=== PATIENT | male | born 1935 | race Caucasian/White ===

== ENCOUNTER 2019-05-17 11:11 | Emergency (ER) | payer MEDICARE, BC ==
[2019-05-17 11:21] VITALS: Wt 56.8 kg
[2019-05-17] MEDS ORDERED: NORVASC5 MG PO (11:25)
[2019-05-17] MEDS ORDERED: DONEPEZIL HCL10 MG PO (11:25)
[2019-05-17] MEDS ORDERED: GABAPENTIN100 MG PO (11:26)
[2019-05-17] MEDS ORDERED: KLONOPIN0.5 MG PO (11:26)
[2019-05-17] MEDS ORDERED: PROSCAR5 MG PO (11:26)
[2019-05-17] MEDS ORDERED: FLOMAX0.4 MG PO (11:26)
[2019-05-17] MEDS ORDERED: HYDROCODONE-A1 UDTA2 PO (11:27)
[2019-05-17] MEDS ORDERED: PERCOCET 10-321 EAC1 PO (11:27)
[2019-05-17 13:34] VITALS: BP 155/113
== END 2019-05-17 13:34 | disposition home or self-care (01) ==
LOC: D.ER 11:11
DX: S92.302A Fracture of unspecified metatarsal bone(s), left foot, initial encounter for closed fracture (principal); W19.XXXA Unspecified fall, initial encounter

== ENCOUNTER 2019-05-19 13:02 | Inpatient (IN) | payer MEDICARE, BC ==
[~2019-05-19] VITALS: Ht 167.6 cm; Wt 56.7 kg
[~2019-05-19 13:02] MED LIST: DONEPEZIL HCL10 MG PO; FLOMAX0.4 MG PO; GABAPENTIN100 MG PO; HYDROCODONE-A1 UDTA2 PO; KLONOPIN0.5 MG PO; NORVASC5 MG PO; PERCOCET 10-321 EAC1 PO; PROSCAR5 MG PO
[2019-05-19 15:29] LABS: APPEARANCE CLEAR (CLEAR); COLOR YELLOW (YELLOW)
[2019-05-19 15:30] LABS: BILIRUBIN NEGATIVE (NEGATIVE); GLUCOSE NEGATIVE (NEGATIVE); KETONE NEGATIVE (NEGATIVE); NITRITE NEGATIVE (NEGATIVE); PROTEIN NEGATIVE (NEGATIVE); SPECIFIC GRAVITY 1.015 (1.005-1.020); UROBILINOGEN NORMAL (NORMAL)
[2019-05-19 15:34] LABS: UDS - AMPHET NEGATIVE QUAL (NEGATIVE); UDS - BARB NEGATIVE QUAL (NEGATIVE); UDS - BENZO NEGATIVE QUAL (NEGATIVE); UDS - COCAINE NEGATIVE QUAL (NEGATIVE); UDS - OPIATE POSITIVE QUAL (NEGATIVE); UDS - PCP NEGATIVE QUAL (NEGATIVE); UDS - THC NEGATIVE QUAL (NEGATIVE)
[2019-05-19 15:39] LABS: BASOPHILS 0.1 % (0-2); EOSINOPHILS 0.1 % (0-7); HEMATOCRIT 38.3 % (42.0-54.0); HEMOGLOBIN 12.5 g/dL (13.5-17.5); IMMATURE GRANULOCYTES 0.4 % (0-5); LYMPHOCYTES 8.3 % (15-50); MCH 30.9 pg (26.0-34.0); MCHC 32.6 g/dL (31.0-37.0); MCV 94.6 fL (80.0-100.0); MEAN PLATELET VOLUME 9.8 fL (7.4-10.4); MONOCYTES 9.7 % (2-11); NEUTROPHILS 81.4 % (40-80); PLATELET COUNT 402 10x3/uL (130-400); RBC 4.05 10x6/uL (4.20-6.10); RDW 13.3 % (11.5-14.5); WBC 11.6 10x3/uL (4.8-10.8)
[2019-05-19 15:46] LABS: CALC OSMOLALITY 278 mosm/kg (275-300); CALCIUM 8.6 mg/dL (8.5-10.1); CHLORIDE - SERUM 103 mmol/L (98-107); GLUCOSE 106 mg/dL (74-106); POTASSIUM - SERUM 3.9 mmol/L (3.5-5.1); SODIUM 138 mmol/L (136-145); UREA NITROGEN 20 mg/dL (7-18); eGFR NON AFRICAN AMERICAN 76 mL/min (90-120)
[2019-05-19 15:56] LABS: ALBUMIN 2.9 g/dL (3.4-5.0); ALKALINE PHOSPHATASE 189 U/L (46-116); ALT (SGPT) 33 U/L (10-68); BILIRUBIN - TOTAL 0.54 mg/dL (0.2-1.3)
[2019-05-19 20:00] VITALS: BP 151/94
--- NOTE | 2019-05-19 20:00 | NUR ---
ASSESSMENT PER FLOWSHEET. SR UP X3 CALL LIGHT WITHIN REACH. DEIRDRE MAT TO BED ALARMS ON IV PATENT RT ARM OF NS AT 60CC'S/HR. SITE CLEAR. ORTHO BOOT TO LEFT FOOT HX OF FX.
[2019-05-19 20:18] VITALS: BP 166/90; BMI 20.2
--- NOTE | 2019-05-19 20:45 | NUR ---
FOUND IV LYING IN BED PT HAD PULLED OUT. RESITED TO RT FOREARM #20 G [id number]. RESUMED IV FLUIDS.
--- NOTE | 2019-05-19 22:37 | NUR ---
MOANING IF IN PAIN. RUBS LEFT LEG. MORPHINE 2 MG SIVP GIVEN FOR PAIN CONTROL.
--- NOTE | 2019-05-20 00:23 | NUR ---
EYES CLOSED RESPIRATIONS WITH EASE AND UNLABORED.
[2019-05-20 04:00] VITALS: BP 122/50
--- NOTE | 2019-05-20 04:21 | NUR ---
EYES CLOSED RESPIRATIONS WITH EASE AND UNLABORED.
[2019-05-20 06:46] LABS: BASOPHILS 0.1 % (0-2); EOSINOPHILS 0.1 % (0-7); HEMATOCRIT 41.6 % (42.0-54.0); HEMOGLOBIN 13.5 g/dL (13.5-17.5); IMMATURE GRANULOCYTES 0.4 % (0-5); LYMPHOCYTES 7.4 % (15-50); MCH 30.7 pg (26.0-34.0); MCHC 32.5 g/dL (31.0-37.0); MCV 94.5 fL (80.0-100.0); MEAN PLATELET VOLUME 9.9 fL (7.4-10.4); PLATELET COUNT 437 10x3/uL (130-400); RDW 13.3 % (11.5-14.5); WBC 11.3 10x3/uL (4.8-10.8)
[2019-05-20 07:05] LABS: CALC OSMOLALITY 277 mosm/kg (275-300); CALCIUM 9.1 mg/dL (8.5-10.1); CARBON DIOXIDE 24.9 mmol/L (21.0-32.0); CHLORIDE - SERUM 101 mmol/L (98-107); CREATININE - SERUM 0.9 mg/dL (0.6-1.3); GLUCOSE 101 mg/dL (74-106); PHOSPHOROUS 3.9 mg/dL (2.5-4.9); POTASSIUM - SERUM 3.7 mmol/L (3.5-5.1); SODIUM 138 mmol/L (136-145); UREA NITROGEN 18 mg/dL (7-18); eGFR NON AFRICAN AMERICAN 86 mL/min (90-120)
[2019-05-20 07:31] LABS: APTT 30.8 SECONDS (22.8-39.4); INR 1.11 (0.85-1.17); PROTIME 13.8 SECONDS (11.6-15.0)
--- NOTE | 2019-05-20 07:40 | NUR ---
ALERT AND ORIENTED TO SELF. LUNGS CLEAR BILATERALLY. HEART SOUNDS S1 AND S2 HEARD IN ALL DE LEON. BOWEL SOUNDS ACTIVE X 4. SKIN INTACT WITHOUT REDNESS. WALKING BOOT IN PLACE TO LEFT FOOT FROM PREVIOUS FX. IV TO LFA PATENT WITHOUT REDNESS. DENIES NEEDS. BED LOW. FALL PRECAUTIONS IN PLACE. CALL COELLO AND PERSONAL ITEMS IN REACH. WILL CONTINUE TO MONITOR.
[2019-05-20 08:27] VITALS: BP 106/55
--- NOTE | 2019-05-20 09:51 | NUR ---
PRN PAIN MEDICATION GIVEN PER REQUEST. NEPHEW IN ROOM.
--- NOTE | 2019-05-20 12:00 | NUR ---
PATIENT PULLED OUT IV TO RFA. SECOND IV THAT HAS BEEN PULLED OUT. NOTE LEFT FOR KELLY ABBOTT FOR POSSIBLE PO ABX AND PAIN MEDICATION.
[2019-05-20 12:18] VITALS: BP 139/91
--- NOTE | 2019-05-20 13:16 | NUR ---
SPOKE WITH KELLY ABBOTT ABOUT POSSIBLE PO ABX. NO N/O AT THIS TIME.
--- NOTE | 2019-05-20 14:24 | MORECARE ---
CASE MANAGEMENT DISCHARGE SUMMARY PATIENT: SHIELA GUAMAN UNIT: [id number] ADM DATE: 05/19/19 AGE: 83 : 36 SEX: M ROOM/BED: D.2219 AUTHOR: TREY HERNANDEZ PHYSICIAN: REFERRING PHYSICIAN: JUSTO HUGGINS MD DATE OF SERVICE: 05/20/19 Discharge Plan Patient Name: SHIELA GUAMAN Facility: [facility]:[place] : 1935 Planned Disposition: Anticipated Discharge Date: Discharge Date: Expected LOS: Initial Reviewer: [email or web address] Initial Review Date: 05/19/2019 Generated: 05/20/19 3:24 pm Comments DCP- Discharge Planning Updated by [email or web address]: Alberat Ruiz on 05/20/19 1:[address] STARTED THE PROCESS TO GET PATIENT TRANSFERED TO [facility], CALLED THE TRANSFER CENTER SPOKE WITH ALENA AT TRANSFER CENTER ALSO SPOKE WITH CHARLOTTE GARCIA External Providers External Provider: [facility]TRANSF[facility] Next Contact Date: Service Request Date: Service Type: Resolution: Reviewer: Comments: Patient Name: SHIELA GUAMAN Page [phone] at 1424 All edits/amendments must be made on the electronic document DICTATION DATE: 05/20/191423 BRACELET FORM COVERER: BUCK 05/20/191423 RPT#: [id number] DC DATE: STATUS: ADM IN [facility] [address] [place] [address] END OF REPORT
--- NOTE | 2019-05-20 16:00 | MORECARE ---
CASE MANAGEMENT DISCHARGE SUMMARY PATIENT: SHIELA GUAMAN UNIT: [id number] ADM DATE: 05/19/19 AGE: 83 : 36 SEX: M ROOM/BED: D.2219 AUTHOR: TREY HERNANDEZ PHYSICIAN: REFERRING PHYSICIAN: JUSTO HUGGINS MD DATE OF SERVICE: 05/20/19 Discharge Plan Patient Name: SHIELA GUAMAN Facility: [facility]:[place] : 1935 Planned Disposition: Anticipated Discharge Date: Discharge Date: Expected LOS: Initial Reviewer: [email or web address] Initial Review Date: 05/19/2019 Generated: 05/20/19 4:59 pm Comments DCP- Discharge Planning Updated by [email or web address]: Alberta Ruiz on 05/20/19 2:[address] CALLED [facility] TO GET NEXT OF KIN INFORMATION NEPHEW - NATALIO GUAMAN [phone] I ATTEMPTED TO CALL HIM, BUT GOT A VOICEMAIL I DID NOT LEAVE A MESSAGE. CAROLINE SANCHEZ [phone] DCP- Discharge Planning Updated by [email or web address]: Alberta Ruiz on 05/20/19 1:[address] STARTED THE PROCESS TO GET PATIENT TRANSFERED TO [facility], CALLED THE TRANSFER CENTER SPOKE WITH ALENA AT TRANSFER CENTER ALSO SPOKE WITH CHARLOTTE GARCIA export: 05/20/19 1:25 p Patient Name: SHIELA GUAMAN Page [phone] at 1600 All edits/amendments must be made on the electronic document DICTATION DATE: 05/20/191558 RESERVE OFFICER: BUCK 05/20/19 155 RPT#: [id number] DC DATE: STATUS: ADM IN [facility] [address] [place] [address] END OF REPORT
[2019-05-20 17:14] VITALS: BP 142/76
--- NOTE | 2019-05-20 18:24 | NUR ---
RESTING IN BED. FALL PRECAUTIONS IN PLACE. CALL COELLO AND PERSONAL ITEMS IN REACH. WILL CONTINUE TO MONITOR.
--- NOTE | 2019-05-20 20:00 | NUR ---
ASSESSMENT PER FLOWSHEET. IV SALINE LOCKED TO RT ARM. PT CONFUSED DEIRDRE MAT TO BED SR UP X2 CALL LIGHT WITHIN REACH.
[2019-05-20 20:24] VITALS: BP 130/76
--- NOTE | 2019-05-20 20:30 | NUR ---
INC URINE COMPLETE BED BATH WITH LINENS CHANGED
--- NOTE | 2019-05-20 21:30 | NUR ---
MEDS GIVEN PER MAR.
[2019-05-21] VITALS (10 sets, daily range): BP systolic 144–168; BP diastolic 80–99; Ht 167.6 cm; Wt 56.7 kg
--- NOTE | 2019-05-21 | NUR ---
INC URINE COMPLETE BATH WITH LINENS CHANGED.
--- NOTE | 2019-05-21 02:22 | NUR ---
C/O PAIN NORCO 7.5MG TAB ONE PO GIVEN FOR PAIN CONTROL.
--- NOTE | 2019-05-21 02:28 | NUR ---
RESTING AT THIS TIME.
[2019-05-21 07:20] LABS: HEMOGLOBIN 12.4 g/dL (13.5-17.5); MCH 30.8 pg (26.0-34.0); MCHC 31.8 g/dL (31.0-37.0); MEAN PLATELET VOLUME 10.2 fL (7.4-10.4); PLATELET COUNT 373 10x3/uL (130-400); RBC 4.03 10x6/uL (4.20-6.10); RDW 13.4 % (11.5-14.5); WBC 10.1 10x3/uL (4.8-10.8)
[2019-05-21 07:23] LABS: MCV 96.8 fL (80.0-100.0)
[2019-05-21 07:45] LABS: APTT 32.9 SECONDS (22.8-39.4); INR 1.2 (0.85-1.17); PROTIME 14.7 SECONDS (11.6-15.0)
[2019-05-21 07:48] LABS: CALC OSMOLALITY 280 mosm/kg (275-300); CALCIUM 8.3 mg/dL (8.5-10.1); CARBON DIOXIDE 24.7 mmol/L (21.0-32.0); CHLORIDE - SERUM 105 mmol/L (98-107); GLUCOSE 113 mg/dL (74-106); LDH 322 U/L (85-227); MAGNESIUM - SERUM 1.8 mg/dL (1.8-2.4); PHOSPHOROUS 3.5 mg/dL (2.5-4.9); POTASSIUM - SERUM 4.2 mmol/L (3.5-5.1); SODIUM 138 mmol/L (136-145); UREA NITROGEN 25 mg/dL (7-18); eGFR NON AFRICAN AMERICAN 76 mL/min (90-120)
--- NOTE | 2019-05-21 08:09 | NUR ---
PATIENT RECIEVED RESTING WITH EYES CLOSED
--- NOTE | 2019-05-21 08:42 | NUR ---
PATIENT OFF FLOOR FOR BONE BIOPSY
[2019-05-21 09:58] LABS: EOSINOPHILS 1 % (0-7); LYMPHOCYTES 13 % (15-50); MONOCYTES 9 % (2-11); NEUTROPHILS 75 % (40-80)
[2019-05-21 09:59] LABS: PLATELET ESTIMATE INCREASED; PLATELET MORPHOLOGY PLT CLUMPS PRESENT
[2019-05-21 10:00] LABS: ROULEAUX OCC
--- NOTE | 2019-05-21 13:30 | NUR ---
PATIENT RESTING WITH NO DISTRESS CL IN REACH
--- NOTE | 2019-05-21 14:30 | NUR ---
THIS NURSE RECEIVED THIS PATIENT AT 1400. PATIENT IS CONFUSED. BED ALARM ON. CALL LIGHT WITHIN REACH. VOICES NO NEEDS AT THIS TIME.
--- NOTE | 2019-05-21 16:41 | NUR ---
PATIENT REMAINS RESTING IN BED. WATCHING T.V. VOICES NO NEEDS AT THIS TIME
--- NOTE | 2019-05-21 20:00 | NUR ---
ASSESSMENT PER FLOWSHEET. IV SALINE LOCKED TO RT FOREARM. INC URINE CLEANED AND DRIED. WITH LINENS CHANGED.
--- NOTE | 2019-05-21 21:56 | NUR ---
C/O PAIN IN BODY. NORCO 7.5MG TAB ONE PO GIVEN FOR PAIN CONTROL.DEIRDRE MAT TO BED YELLOW SAFETY MEASURES IN USE. SR UP X3 CALL LIGHT WITHIN REACH DOOR OPENED.
--- NOTE | 2019-05-21 22:41 | NUR ---
RESTING AT THIS TIME.
--- NOTE | 2019-05-22 02:00 | NUR ---
INC URINE LINENS CHANGED
[2019-05-22 04:00] VITALS: BP 157/92
[2019-05-22 06:08] LABS: BASOPHILS 0.1 % (0-2); EOSINOPHILS 0.3 % (0-7); HEMATOCRIT 38.8 % (42.0-54.0); HEMOGLOBIN 12.6 g/dL (13.5-17.5); IMMATURE GRANULOCYTES 0.7 % (0-5); LYMPHOCYTES 9.7 % (15-50); MCH 30.4 pg (26.0-34.0); MCHC 32.5 g/dL (31.0-37.0); MEAN PLATELET VOLUME 10.2 fL (7.4-10.4); MONOCYTES 13.2 % (2-11); PLATELET COUNT 428 10x3/uL (130-400); RBC 4.15 10x6/uL (4.20-6.10); RDW 13.4 % (11.5-14.5); WBC 10.1 10x3/uL (4.8-10.8)
[2019-05-22 06:12] LABS: MCV 93.5 fL (80.0-100.0)
[2019-05-22 06:34] LABS: CALC OSMOLALITY 282 mosm/kg (275-300); CALCIUM 8.3 mg/dL (8.5-10.1); CARBON DIOXIDE 26.2 mmol/L (21.0-32.0); CHLORIDE - SERUM 103 mmol/L (98-107); CREATININE - SERUM 0.9 mg/dL (0.6-1.3); GLUCOSE 117 mg/dL (74-106); MAGNESIUM - SERUM 1.8 mg/dL (1.8-2.4); POTASSIUM - SERUM 4.5 mmol/L (3.5-5.1); SODIUM 139 mmol/L (136-145); UREA NITROGEN 24 mg/dL (7-18); eGFR NON AFRICAN AMERICAN 86 mL/min (90-120)
--- NOTE | 2019-05-22 07:16 | NUR ---
ALERT AND ORIENTED TO SELF. LUNGS CLEAR BILATERALLY. HEART SOUNDS S1 AND S2 HEARD IN ALL DE LEON. BOWEL SOUNDS ACTIVE X 4. SKIN INTACT WITHOUT REDNESS. WALKING BOOT FOR LEFT FOOT OFF AND ON FLOOR NEXT TO BED. IV TO RFA PATENT WITHOUT REDNESS. DENIES NEEDS. BED LOW. FALL PRECAUTIONS IN PLACE. CALL COELLO AND PERSONAL ITEMS IN REACH. WILL CONTINUE TO MONITOR.
--- NOTE | 2019-05-22 09:02 | NUR ---
ATTEMPTED TO GIVE PATIENT BREAKFAST TRAY. STATES NOT HUNGRY. TRAY LEFT IN ROOM. DAUGHTER IN LAW SUPPOSED TO COME HELP EAT LATER.
[2019-05-22 09:13] LABS: CEA 144.4 ng/mL (0.0-4.7)
[2019-05-22 09:23] VITALS: BP 159/95
--- NOTE | 2019-05-22 09:43 | NUR ---
RESTING IN BED. DENIES NEEDS. WILL CONTINUE TO MONITOR.
--- NOTE | 2019-05-22 11:17 | NUR ---
BED BATH GIVEN. MEDIUM BM NOTED.
--- NOTE | 2019-05-22 12:21 | NUR ---
RESTING IN BED. NIECE AT BEDSIDE. DENIES NEEDS. WILL CONTINUE TO MONITOR.
--- NOTE | 2019-05-22 12:25 | NUR ---
JAM PATRICIA PRAYING WITH FAMILY IN ROOM PER PATIENT REQUEST.
[2019-05-22 13:08] VITALS: BP 119/72
--- NOTE | 2019-05-22 14:14 | NUR ---
PATIENT'S SISTER CALLED REQUESTING INFO ABOUT PATIENT. SPOKE WITH PATIENT TO ASK IF OK TO TALK TO SISTER. STATES OKAY TO GIVE SISTER INFORMATION.
--- NOTE | 2019-05-22 15:39 | NUR ---
PATIENT SLEEPING. WILL CONTINUE TO MONITOR.
[2019-05-22 16:08] LABS: SPE - A/G RATIO 0.9 (0.7-1.7); SPE - ALBUMIN 2.8 g/dL (2.9-4.4); SPE - ALPHA-1 GLOBULIN 0.2 g/dL (0.0-0.4); SPE - BETA GLOBULIN 0.8 g/dL (0.7-1.3); SPE - GAMMA GLOBULIN 1.2 g/dL (0.4-1.8); SPE - M-SPIKE Not Observed g/dL (Not Observed)
--- NOTE | 2019-05-22 17:30 | MORECARE ---
CASE MANAGEMENT DISCHARGE SUMMARY PATIENT: SHIELA GUAMAN UNIT: [id number] ADM DATE: 05/19/19 AGE: 83 : 36 SEX: M ROOM/BED: D.2219 AUTHOR: TREY HERNANDEZ PHYSICIAN: REFERRING PHYSICIAN: JUSTO HUGGINS MD DATE OF SERVICE: 05/22/19 Discharge Plan Patient Name: SHIELA GUAMAN Facility: [facility]:[place] : 1935 Planned Disposition: Anticipated Discharge Date: Discharge Date: Expected LOS: Initial Reviewer: [email or web address] Initial Review Date: 05/19/2019 Generated: 05/22/19 6:30 pm DCP- Discharge Planning Updated by [email or web address]: Alberta Ruiz on 05/20/19 3:[address] CALLED [facility] TO GET NEXT OF KIN INFORMATION NEPHEW - NATALIO GUAMAN [phone] I ATTEMPTED TO CALL HIM, BUT GOT A VOICEMAIL I DID NOT LEAVE A MESSAGE. CAROLINE SANCHEZ [phone] I TOLD [facility] THAT HE WILL BE TRANSFERED TO [facility] FOR A SPECIALIST DCP- Discharge Planning Updated by [id number]: Alberta Ruiz on 05/20/19 1:[address] STARTED THE PROCESS TO GET PATIENT TRANSFERED TO [facility], CALLED THE TRANSFER CENTER SPOKE WITH ALENA AT TRANSFER CENTER ALSO SPOKE WITH CHARLOTTE GARCIA DP export: 05/20/19 3:00 p Patient Name: SHIELA GUAMAN Page [phone] at 1730 All edits/amendments must be made on the electronic document DICTATION DATE: 05/22/191729 SITE DIRECTOR: BUCK 05/22/191729 RPT#: [id number] DC DATE: STATUS: ADM IN [facility] [address] [place] [address] END OF REPORT
--- NOTE | 2019-05-22 17:38 | MORECARE ---
CASE MANAGEMENT DISCHARGE SUMMARY PATIENT: SHIELA GUAMAN UNIT: [id number] ADM DATE: 05/19/19 AGE: 83 : 36 SEX: M ROOM/BED: D.2219 AUTHOR: TREY HERNANDEZ PHYSICIAN: REFERRING PHYSICIAN: JUSTO HUGGINS MD DATE OF SERVICE: 05/22/19 Discharge Plan Patient Name: SHIELA GUAMAN Facility: [facility]:[place] : 1935 Planned Disposition: Anticipated Discharge Date: Discharge Date: Expected LOS: Initial Reviewer: [id number] Initial Review Date: 05/19/2019 Generated: 05/22/19 6:37 pm Comments DCP- Discharge Planning Updated by [email or web address]: Kinga Haddad on 05/22/19 4:[address] Patient Name: SHIELA GUAMAN Admission Status: ER Accout number: [id number] Admission Date: 05-19-2019 : 1935 Admission Diagnosis: Attending: JUSTO HUGGINS Current LOS: 3 Anticipated DC Date: Planned Disposition: Primary Insurance: MEDICARE A & B Discharge Planning Comments: BRENDA LANCE WANTS [facility], IF NOT APPROPRIATE THEN SIGNED BETH FOR [facility]. I WILL CALL [facility] NOW. CM TO FOLLOW AND ASSIST. Skin Piler: Kinga Haddad DCP- Discharge Planning Updated by [id number]: Alberta Ruiz on 05/20/19 3:[address] CALLED [facility] TO GET NEXT OF KIN INFORMATION NEPHEW - NATALIO GUAMAN [phone] I ATTEMPTED TO CALL HIM, BUT GOT A VOICEMAIL I DID NOT LEAVE A MESSAGE. CAROLINE SANCHEZ [phone] I TOLD [facility] THAT HE WILL BE TRANSFERED TO [facility] FOR A SPECIALIST DCP- Discharge Planning Updated by [id number]: Alberta Ruiz on 05/20/19 1:[address] STARTED THE PROCESS TO GET PATIENT TRANSFERED TO [facility], CALLED THE TRANSFER CENTER SPOKE WITH ALENA AT TRANSFER CENTER ALSO SPOKE WITH CHARLOTTE GARCIA External Providers External Provider: [facility] Next Contact Date: Service Request Date: Service Type: Resolution: Reviewer: Comments: Last DP export: 05/22/19 4:30 p Patient Name: SHIELA GUAMAN Page [phone] at 1738 All edits/amendments must be made on the electronic document DICTATION DATE: 05/22/191736 LINE RUNNER: BUCK 05/22/191736 RPT#: [id number] DC DATE: STATUS: ADM IN [facility] [address] [place] [address] END OF REPORT
--- NOTE | 2019-05-22 17:39 | NUR ---
SPOKE WITH DR HUGGINS WHO STATES OK TO RENEW MORPHINE ON SEP. ALSO TOLD MD FAMILY REQUESTING TO SEE .
--- NOTE | 2019-05-22 17:40 | NUR ---
RESTING IN BED. FAMILY AT BEDSIDE. REQUESTED AND GIVEN PRN MORPHINE. FAMILY REQUESTING MORPHINE BE GIVEN EVERY 4 HOURS REGARDLESS OF PATIENT ASKING FOR PAIN MEDICATION. EDUCATION PROVIDED. VERBALIZED UNDERSTANDING. REQUESTING TO SPEAK WITH DR HUGGINS ABOUT SCHEDULING PAIN MEDICATION. AWARE.
[2019-05-22 17:42] VITALS: BP 133/75
--- NOTE | 2019-05-22 17:53 | MORECARE ---
CASE MANAGEMENT DISCHARGE SUMMARY PATIENT: SHIELA GUAMAN UNIT: [id number] ADM DATE: 05/19/19 AGE: 83 : 36 SEX: M ROOM/BED: D.2219 AUTHOR: TREY HERNANDEZ PHYSICIAN: REFERRING PHYSICIAN: JUSTO HUGGINS MD DATE OF SERVICE: 05/22/19 Discharge Plan Patient Name: SHIELA GUAMAN Facility: [facility]:[place] : 1935 Planned Disposition: Anticipated Discharge Date: Discharge Date: Expected LOS: Initial Reviewer: [email or web address] Initial Review Date: 05/19/2019 Generated: 05/22/19 6:53 pm Comments DCP- Discharge Planning Updated by [email or web address]: Kinga Haddad on 05/22/19 4:[address] Patient Name: SHIELA GUAMAN Admission Status: ER Accout number: [id number] Admission Date: 05-19-2019 : 1935 Admission Diagnosis: Attending: JUSTO HUGGINS Current LOS: 3 Anticipated DC Date: Planned Disposition: Primary Insurance: MEDICARE A & B Discharge Planning Comments: BRENDA LANCE WANTS [facility], IF NOT APPROPRIATE THEN SIGNED BETH FOR [facility]. I WILL CALL [facility] NOW. CM TO FOLLOW AND ASSIST. Collar Worker: Kinga Haddad Appended by Kinga Haddad on 05/22/2019 17:52 CHEF ASSISTANT: [facility] CALLED AND REFERRAL FAXED. THEY WILL SEND A NURSE OUT TO [facility] AND ADMIT IF APPROPRIATE. CM TO FOLLOW. DCP- Discharge Planning Updated by [id number]: Alberta Ruiz on 05/20/19 3:[address] CALLED [facility] TO GET NEXT OF K[facility] INFORMATION NEPHEW - NATALIO GUAMAN [phone] I ATTEMPTED TO CALL HIM, BUT GOT A VOICEMAIL I DID NOT LEAVE A MESSAGE. CAROLINE SANCHEZ [phone] I TOLD [facility] THAT HE WILL BE TRANSFERED TO [facility] FOR A SPECIALIST DCP- Discharge Planning Updated by [email or web address]: Alberta Ruiz on 05/20/19 1:[address] STARTED THE PROCESS TO GET PATIENT TRANSFERED TO [facility], CALLED THE TRANSFER CENTER SPOKE WITH ALENA AT TRANSFER CENTER ALSO SPOKE WITH CHARLOTTE GARCIA export: 05/22/19 4:38 p Patient Name: SHIELA GUAMAN Page [phone] at 1753 All edits/amendments must be made on the electronic document DICTATION DATE: 05/22/191752 BLEACHER GROUNDWOOD PULP: BUCK 05/22/191752 RPT#: [id number] DC DATE: STATUS: ADM IN [facility] [address] [place] [address] END OF REPORT
--- NOTE | 2019-05-22 19:30 | NUR ---
NEREIDA RN FROM [facility] EVALUATED PT AND SIGNED PAPERS WITH FAMILY. DR. ASTUDILLO ACCEPTED TO HOSPICE. PT'S NIECE IS ON HER WAY FROM [place] IS FINAL SIGNATURE NEEDED TO ADMIT PT TO HOSPICE. PT SHAKING AND ANSWERS "YES" WHEN ASKED IF IN PAIN. GAVE 1 TAB NORCO 7.5 MG BY MOUTH WITH SCHEDULED MEDS. PT HAD SOME DIFFICULTY SWALLOWING AND NEEDED EXTRA TIME. PT INCONTINENT OF URINE. CLEANED PT AND CHANGED PADS WITH ASSISTANCE FROM HOSPICE NURSE. NO OTHER NEEDS. WILL REASSESS AND CONTINUE TO MONITOR.
--- NOTE | 2019-05-22 22:47 | NUR ---
PT SHAKING AND CONFIRMS WITH A "YES" HE IS IN PAIN. CALLED [facility]. RECEIVED ORDER TO CHANGE MORPHINE FROM 2 MG TO 2-4 MG IV EVERY 4 HOURS PRN AND HIRSCH PLACEMENT FOR COMFORT CARE. ADMINISTERED MORPHINE 2 MG IV PUSH AND PLACED HIRSCH CATHETER. COMPLETE BED CHANGE. NO OTHER NEEDS. WILL CONTINUE TO MONITOR.
[2019-05-23] VITALS: BP 169/90
[2019-05-23 04:00] VITALS: BP 155/91
[2019-05-23 06:09] LABS: BETA-2 MICROGLOBULIN 2.4 mg/L (0.6-2.4)
[2019-05-23 06:25] LABS: BASOPHILS 0.1 % (0-2); EOSINOPHILS 0.1 % (0-7); HEMATOCRIT 36.9 % (42.0-54.0); HEMOGLOBIN 12.1 g/dL (13.5-17.5); IMMATURE GRANULOCYTES 0.5 % (0-5); LYMPHOCYTES 5.7 % (15-50); MCH 30.8 pg (26.0-34.0); MCHC 32.8 g/dL (31.0-37.0); MCV 93.9 fL (80.0-100.0); MEAN PLATELET VOLUME 9.9 fL (7.4-10.4); MONOCYTES 11.8 % (2-11); NEUTROPHILS 81.8 % (40-80); PLATELET COUNT 466 10x3/uL (130-400); RBC 3.93 10x6/uL (4.20-6.10); RDW 13.2 % (11.5-14.5)
[2019-05-23 06:42] LABS: WBC 14.3 10x3/uL (4.8-10.8)
[2019-05-23 06:44] LABS: CALC OSMOLALITY 283 mosm/kg (275-300); CALCIUM 8.9 mg/dL (8.5-10.1); CARBON DIOXIDE 25.5 mmol/L (21.0-32.0); CHLORIDE - SERUM 103 mmol/L (98-107); CREATININE - SERUM 0.9 mg/dL (0.6-1.3); GLUCOSE 160 mg/dL (74-106); MAGNESIUM - SERUM 1.9 mg/dL (1.8-2.4); PHOSPHOROUS 3.5 mg/dL (2.5-4.9); POTASSIUM - SERUM 4.2 mmol/L (3.5-5.1); SODIUM 137 mmol/L (136-145); eGFR NON AFRICAN AMERICAN 86 mL/min (90-120)
[2019-05-23 06:45] LABS: UREA NITROGEN 31 mg/dL (7-18)
--- NOTE | 2019-05-23 07:15 | NUR ---
LYING IN BED,WITHOUT SIGNS OF DISTRESS.PT IS NON VERBAL,BUT SQUEEZES MY HAND.FALL PREVENTION IN PLACE WITH DEIRDRE MAT. DOOR OPEN
[2019-05-23 08:06] VITALS: BP 150/82
--- NOTE | 2019-05-23 09:00 | NUR ---
ASSESSMENT PER FLOW SHEET. PT IS WITHOUT DISTRES.MONITOR FOR NEEDS
--- NOTE | 2019-05-23 09:33 | NUR ---
STILL NON VERBAL.UNABLE TO LUDY MEDS.MONITOR
--- NOTE | 2019-05-23 17:34 | MORECARE ---
CASE MANAGEMENT DISCHARGE SUMMARY PATIENT: SHIELA GUAMAN UNIT: [id number] ADM DATE: 05/19/19 AGE: 83 : 36 SEX: M ROOM/BED: D.2219 AUTHOR: TREY HERNANDEZ PHYSICIAN: REFERRING PHYSICIAN: JUSTO HUGGINS MD DATE OF SERVICE: 05/23/19 Discharge Plan Patient Name: SHIELA GUAMAN Facility: [facility]:[place] : 1935 Planned Disposition: Anticipated Discharge Date: Discharge Date: 05/23/2019 Expected LOS: Initial Reviewer: [email or web address] Initial Review Date: 05/19/2019 Generated: 05/23/19 6:34 pm Comments DCP- Discharge Planning Updated by [email or web address]: Kinga Haddad on 05/22/19 4:[address] Patient Name: SHIEAL GUAMAN Admission Status: ER Accout number: [id number] Admission Date: 05-19-2019 : 1935 Admission Diagnosis: Attending: JUSTO HUGGINS Current LOS: 3 Anticipated DC Date: Planned Disposition: Primary Insurance: MEDICARE A & B Discharge Planning Comments: BRENDA LANCE WANTS [facility], IF NOT APPROPRIATE THEN SIGNED BETH FOR [facility]. I WILL CALL [facility] NOW. CM TO FOLLOW AND ASSIST. River Guide: Kinga Haddad Appended by Kinga Haddad on 05/22/2019 17:52 WATERPROOFING MIXER: [facility] CALLED AND REFERRAL FAXED. THEY WILL SEND A NURSE OUT TO [facility] AND ADMIT IF APPROPRIATE. CM TO FOLLOW. DCP- Discharge Planning Updated by [id number]: Albetra Ruiz on 05/20/19 3:[address] CALLED [facility] TO GET NEXT OF KIN INFORMATION NEPHEW Dino GUAMAN [phone] I ATTEMPTED TO CALL HIM, BUT GOT A VOICEMAIL I DID NOT LEAVE A MESSAGE. CAROLINE SANCHEZ [phone] I TOLD [facility] THAT HE WILL BE TRANSFERED TO [facility] FOR A SPECIALIST DCP- Discharge Planning Updated by [id number]: Alberta Ruiz on 05/20/19 1:[address] STARTED THE PROCESS TO GET PATIENT TRANSFERED TO [facility], CALLED THE TRANSFER CENTER SPOKE WITH ALNEA AT TRANSFER CENTER ALSO SPOKE WITH CHARLOTTE GARCIA export: 05/22/19 4:53 p Patient Name: SHIELA GUAMAN Page [phone] at 1734 All edits/amendments must be made on the electronic document DICTATION DATE: 05/23/191733 COACH CLEANER: BUCK 05/23/191733 RPT#: [id number] DC DATE:05/23/19 STATUS: DIS IN [facility] [address] [place] [address] END OF REPORT
== END 2019-05-23 12:11 | disposition hospice, inpatient (51) | DRG 477 ==
LOC: D.ER 13:02 → D.MS 18:02
PROVIDERS: Emergency Medicine; Internal Medicine Hematology & Oncology; Radiology Vascular & Interventional Radiology; ADMIT Internal Medicine Nephrology; ATTEND Internal Medicine Nephrology
PROC: 0QB33ZX Excision of Left Pelvic Bone, Percutaneous Approach, Diagnostic (ICD-10-PCS; principal; 2019-05-21 08:27)
DX: C79.51 Secondary malignant neoplasm of bone (principal); J18.9 Pneumonia, unspecified organism; R53.2 Functional quadriplegia; R40.2214 Coma scale, best verbal response, none, 24 hours or more after hospital admission; M84.550A Pathological fracture in neoplastic disease, pelvis, initial encounter for fracture; S22.32XA Fracture of one rib, left side, initial encounter for closed fracture; J90 Pleural effusion, not elsewhere classified; C90.00 Multiple myeloma not having achieved remission; R64 Cachexia; C34.32 Malignant neoplasm of lower lobe, left bronchus or lung; M48.54XA Collapsed vertebra, not elsewhere classified, thoracic region, initial encounter for fracture; S42.031A Displaced fracture of lateral end of right clavicle, initial encounter for closed fracture; W19.XXXA Unspecified fall, initial encounter; Y93.9 Activity, unspecified; Y92.099 Unspecified place in other non-institutional residence as the place of occurrence of the external cause; D64.9 Anemia, unspecified; I10 Essential (primary) hypertension; N40.0 Benign prostatic hyperplasia without lower urinary tract symptoms; F03.90 Unspecified dementia, unspecified severity, without behavioral disturbance, psychotic disturbance, mood disturbance, and anxiety; R91.1 Solitary pulmonary nodule; Z91.81 History of falling; Z66 Do not resuscitate; J43.9 Emphysema, unspecified; R40.2354 Coma scale, best motor response, localizes pain, 24 hours or more after hospital admission; R40.2134 Coma scale, eyes open, to sound, 24 hours or more after hospital admission; R22.1 Localized swelling, mass and lump, neck

== ENCOUNTER 2019-05-23 12:38 | Inpatient (IN) | payer OTHER ==
[~2019-05-23] VITALS: Ht 167.6 cm; Wt 56.8 kg
--- NOTE | 2019-05-23 14:00 | NUR ---
PT IS WITHOUT DISTRESS. SOME HANY OF DISCOMFORT.ASSESSMENT PER FLOW SHEET.FAMILY AT BEDSIDE.
[2019-05-23 16:19] VITALS: BP 150/82; Ht 167.6 cm; Wt 56.8 kg
--- NOTE | 2019-05-23 19:56 | NUR ---
PT WITHOUT CHANGE.FAMILY HOME FOR DAY.CONT PLAN OF CAIN
--- NOTE | 2019-05-23 21:00 | NUR ---
PT RESTING QUIETLY, EYES CLOSED. NO DISTRESS, NO TREMORS OR SIGNS OF PAIN OR ANXIETY. WILL CONTINUE TO MONITOR.
[2019-05-23 21:02] VITALS: BP 142/70
--- NOTE | 2019-05-23 23:00 | NUR ---
PT RESTING COMFORTABLY. NO CHANGES. NO S/S OF DISTRESS OR PAIN. WILL CONTINUE TO MONITOR.
--- NOTE | 2019-05-24 02:00 | NUR ---
NO CHANGES. PT SLEEPING. LIGHT SNORE NOTED. NO S/S PAIN OR ANXIETY. WILL CONTINUE TO MONITOR.
--- NOTE | 2019-05-24 08:00 | NUR ---
ASSESSMENT PER FLOW SHEET. PT IS WITHOUT DISTRESS.CALL LIGHT IN REACH.FAMILY HAS BEEN TO VISIT.DOOR OPEN
--- NOTE | 2019-05-24 08:30 | NUR ---
MEDS PER MAR PER FAMILY REQUEST.
[2019-05-24 08:56] VITALS: BP 148/89
--- NOTE | 2019-05-24 10:45 | NUR ---
MEDS PER MAR PER FAMILY REQUEST.MONITOR
[2019-05-24 20:56] VITALS: BP 153/84
--- NOTE | 2019-05-25 00:29 | NUR ---
RESITED IV TO THE LEFT FOREARM. 22 G. RESTARTED MORPHINE CHIEF CONTROLLER TOWER
--- NOTE | 2019-05-25 06:14 | NUR ---
I have reviewed this patient and I concur with the Shift Assessment completed by the Licensed Practical Nurse today this shift.
--- NOTE | 2019-05-25 07:17 | NUR ---
PT IS RESTING IN BED WITH EYES CLOSED. RESPIRATIONS ARE SHALLOW/UNLABORED/EVEN. NO APPARENT S/S OF DISTRESS NOTED. PT RESTING COMFORTABLY. PASTRYCOOK MORPHINE INFUSING TO LEFT WRIST PER ORDER WITHOUT DIFFICULTY. PT IS POSITIONED ON RIGHT SIDE. BILATERAL HEELS ARE BRIDGED AND PILLOWS ARE USED FOR SUPPORT. PT DOES BLINK EYES TO VERBAL STIMULATION BUT DOES NOT SPEAK. HIRSCH CATHETER NOTED AND DRAINING ORANGE/RED URINE WITHOUT DIFFICULTY. STAT LOCK IN PLACE. BED IS IN THE LOWEST POSITION. CALL LIGHT AND BEDSIDE TABLE ARE WITHIN REACH. SIDE RAILS X 2. WILL CONT TO MONITOR.
[2019-05-25 09:19] VITALS: BP 149/86
--- NOTE | 2019-05-25 09:28 | NUR ---
PT REPOSITIONED TO BACK. PILLOWS USED TO BRIDGE BILATERAL HEELS. PT IS RESTING COMFORTABLY. FAMILY IS AT BEDSIDE. BED IS IN THE LOWEST POSITION. CALL LIGHT AND BEDSIDE TABLE ARE WITIHN REACH. SIDE RAILS X 2. WILL CONT TO MONITOR.
--- NOTE | 2019-05-25 11:39 | NUR ---
PT REPOSITIONED TO LEFT SIDE. PILLOWS USED FOR SUPPORT. BILATERAL HEELS BRIDGED WITH PILLOWS. PIV TO LEFT WRIST INFUSING WITHOUT DIFFICULTY. PT IS RESTING COMFORTABLY. FAMILY IS AT BEDSIDE. BED IS IN THE LOWEST POSITION. CALL LIGHT AND BEDSIDE TABLE ARE WITHIN REACH. SIDE RAILS X 2. WILL CONT TO MONITOR. PT FAMILY DENIES FURTHER NEEDS AT THIS TIME.
--- NOTE | 2019-05-25 13:15 | NUR ---
PT REPOSITIONED TO RIGHT SIDE. PILLOWS USED FOR SUPPORT. BILATERAL HEELS BRIDGED WITH PILLOWS. PIV TO LEFT WRIST INFUSING WITHOUT DIFFICULTY. FLIGHT OPERATIONS SPECIALIST MORPHINE INFUSING PER ORDER. PT IS RESTING COMFORTABLY. FAMILY IS AT BEDSIDE. PT EYES ARE OPEN AND PT IS "DABBING" MOUTH WITH [place]. BED IS IN THE LOWEST POSITION. CALL LIGHT AND BEDSIDE TABLE ARE WITHIN REACH. SIDE RAILS X 2. PT AND PT FAMILY DENY FURTHER NEEDS. AT THIS TME.
--- NOTE | 2019-05-25 15:29 | NUR ---
PT REPOSITIONED TO BACK. BILATERAL HEELS BRIDGED WITH PILLOWS. PT IS RESTING COMFORTABLY. ROTARY SWAGING MACHINE OPERATOR MORPHINE INFUSING PER ORDER WITHOUT DIFFICULTY. FAMILY IS AT BEDSIDE. BED IS IN THE LOWEST POSITION. CALL LIGHT AND BEDSIDE TABLE ARE WITHIN REACH. SIDE RAILS X 2.
--- NOTE | 2019-05-25 17:32 | NUR ---
PT REPOSITIONED TO LEFT SIDE WITH PILLOWS USED FOR SUPPORT. PT IS RESTING COMFORTABLY. FLUME WORKER MORPHINE IS INFUSING PER ORDER WITHOUT DIFFICULTY. FAMILY IS AT BEDSIDE.
--- NOTE | 2019-05-25 19:30 | NUR ---
PT LYING IN BED WITHOUT DISTRESS, EYES OPEN AND WATCHING FAMILY AROUND HIM. MOVING ARMS SLIGHTLY WHEN TURNING PT. CHANGED PT LINENS AND GOWN. PLACED PILLOWS UNDER AND BETWEEN LEGS. TURNED TO RIGHT SIDE. FAMILY STATES PT SEEMS A LITTLE RESTLESS COMPARED TO HIS USUAL, REQUESTED NURSE ORTHOPAEDIC BOLUS. GAVE BOLUS ORDERED. FAMILY DENIES OTHER NEEDS. CL IN REACH, WILL CTM
[2019-05-25 20:00] VITALS: BP 176/100
--- NOTE | 2019-05-25 21:30 | NUR ---
PT LYING IN BED RESTING WITHOUT DISTRESS. TURNED ONTO BACK. WILL CTM
--- NOTE | 2019-05-26 | NUR ---
TURNED TO LEFT SIDE. EYES CLOSED RESTING WITHOUT DISTRESS. RESP SHALLOW. WILL CTM
--- NOTE | 2019-05-26 02:15 | NUR ---
TURNED TO RIGHT SIDE, WILL CTM
--- NOTE | 2019-05-26 04:30 | NUR ---
PT TURNED ONTO BACK. BATH GIVEN, LINENS CHANGED. PT WITHOUT DISTRESS, RESP SHALLOW. EYES OPEN AND MOVING EXTREMITIES SLIGHTLY. GRABS FOR SIDE RAILS WHEN TURNING. WASHED FACE AND PROVIDED ORAL CARE. WILL CTM
--- NOTE | 2019-05-26 07:41 | NUR ---
PIV TO LEFT FA LEAKING. PIV REMOVED WITH CATHETER TIP INTACT. DRESSING APPLIED. 22G PIV RESITED TO RIGHT FA X 1 ATTEMPT. INFUSING WITHOUT DIFFICULTY. PT IS RESTING COMFORTABLY. RESPIRATIONS ARE SHALLOW/EVEN/UNLABORED. CRIB TENDER MORPHINE INFUSING PER ORDER. PT OPENS EYES TO VERBAL STIMULATION. PT IS POSITIONED ON LEFT SIDE WITH PILLOWS USED FOR SUPPORT. BILATERAL HEEL BRIDGED WITH PILLOWS FOR SUPPORT. NO APPARENT S/S OF DISTRESS/DISCOMFORT NOTED. HIRSCH CATHETER DRAINING WITHOUT DIFFICULTY. DARK ORAGNE/RED URINE NOTED TO COLLECTION BAG. NO FAMILY AT BEDSIDE AT THIS TIME. BED IS IN THE LOWEST POSITION. CALL LIGHT AND BEDSIDE TABLE ARE WITHIN REACH. SIDE RAILS X 2. WILL CONT TO MONITOR.
[2019-05-26 08:21] VITALS: BP 176/67
--- NOTE | 2019-05-26 08:27 | NUR ---
PT WITH ELEVATED BP AT 176/97 AND PT WITH TACHYCARDIA AT 127. WILL GIVE PRN ATIVAN. SEE EMAR.
--- NOTE | 2019-05-26 09:55 | NUR ---
PT FAMILY AT BEDSIDE. PT IS RESTING IN BED WITH EYES CLOSED. RESPIRATIONS ARE SHALLOW/EVEN AND UNLABORED. PT FAMILY REQUESTS MORPHINE BOLUS STATING THAT THEY "FEEL THOUGH HE IS UNCOMFORTABLE BECAUSE HIS BLOOD PRESSURE IS HIGH STILL". BP 148/98 HEARTRATE 119. BOLUS MORPHINE ADMINISTERED PER FAMILY REQUEST PER ORDER. PT REPOSITIONED TO BACK. BILATERAL HEELS BRIDGED WITH PILLOWS. PT FAMILY DENIES FURTHER NEEDS. BED IS IN THE LOWEST POSITION. CALL LIGHT AND BEDSIDE TABLE ARE WITHIN REACH. SIDE RAILS X 2. WILL CONT TO MONITOR.
--- NOTE | 2019-05-26 11:55 | NUR ---
PT REPOSITIONED TO RIGHT SIDE. PILLOWS USED FOR SUPPORT. PT IS RESTING COMFORTABLY. NO S/S OF DISTRESS/DISCOMFORT NOTED. FAMILY IS AT BEDSIDE. PIV TO RIGHT WRIST INFUSING WITHOUT DIFFICULTY. PRODUCT ENGINEER MORPHINE PER ORDER. HIRSCH CATHETER DRAINING WITHOUT DIFFICULTY. BILATERAL HEELS BRIDGED. PILLOWS USED FOR SUPPORT. BED IS IN THE LOWEST POSITION. CALL LIGHT AND BEDSIDE TABLE ARE WITHIN REACH. SIDE RAILS X 2. PT FAMILY DENY FURTHER NEEDS AT THIS TIME. WILL CONT TO MONITOR.
--- NOTE | 2019-05-26 13:20 | NUR ---
PT REPOSITIONED TO LEFT SIDE. PILLOWS USED FOR SUPPORT. BILATERAL HEELS BRIDGED WITH PILLOWS. HIRSCH CATHETER DRAINING WITHOUT DIFFICULTY. PIV TO RIGHT FA INFUSING WITHOUT DIFFICULTY. PT IS RESTING COMFORTABLY. FAMILY AT BEDSIDE. NO S/S OF DISTRESS/DISCOMFORT AT THIS TIME. PT FAMILY DENIES FURTHER NEEDS. BED IS IN THE LOWEST POSITION. CALL LIGHT AND BEDSIDE TABLE ARE WITHIN RECH. SIDE RAILS X 2. WILL CONT TO MONITOR.
--- NOTE | 2019-05-26 14:55 | MORECARE ---
CASE MANAGEMENT DISCHARGE SUMMARY PATIENT: SHIELA GUAMAN UNIT: [id number] ADM DATE: 05/23/19 AGE: 83 : 36 SEX: M ROOM/BED: D.2219 AUTHOR: TREY HERNANDEZ PHYSICIAN: REFERRING PHYSICIAN: ABRAHAM ASTUDILLO MD DATE OF SERVICE: 05/26/19 Discharge Plan Patient Name: SHIELA GUAMAN Facility: [facility]:[place] : 1935 Planned Disposition: Hospice Medical Facility Anticipated Discharge Date: Discharge Date: Expected LOS: Initial Reviewer: [email or web address] Initial Review Date: 05/23/2019 Generated: 05/26/19 3:54 pm Comments DCP- Discharge Planning Updated by [email or web address]: Alberta Ruiz on 05/26/19 1:[address] PATIENT IS A [facility]OSPICE PATIENT WITH LUIS Patient Name: SHIELA GUAMAN Page [id number] at 1455 All edits/amendments must be made on the electronic document DICTATION DATE: 05/26/191453 APPLIANCE MECHANIC: BUCK 05/26/19 1454 RPT#: [id number] DC DATE: STATUS: ADM IN [facility] [address] [place] [address] END OF REPORT
--- NOTE | 2019-05-26 15:48 | NUR ---
PT REPOSITIONED TO BACK. BILATERAL HEELS BRIDGED WITH PILLOWS. PT WITH LOWER EXTREMITY MOVEMENT. PT FAMILY MEMBER REQUEST MORPHINE BOLUS AT THIS TIME. WILL ADDRESS. SEE EMAR. BED IS IN THE LOWEST POSITION. CALL LIGHT AND BEDSIDE TABLE ARE WITHIN REACH. SIDE RAILS X 2. WILL CONT TO MONITOR.
[2019-05-26 20:00] VITALS: BP 162/105
--- NOTE | 2019-05-27 03:02 | NUR ---
PT RESTING IN BED. EYES CLOSED. NO SIGNS OF DISTRESS. BREATHING EVEN AND UNLABORED. IV SITE RT FA DRESSING CLEAN DRY AND INTACT. NO SIGNS OF INFECITON. PT ON COMFORT CARE. HOSPICE. WILL CONTINUE PLAN OF CARE. BED LOWERED AND LOCKED. BED RAILS UPX2.
--- NOTE | 2019-05-27 04:30 | NUR ---
I have reviewed this patient and I concur with the Shift Assessment completed by the Licensed Practical Nurse today this shift.
--- NOTE | 2019-05-27 07:47 | NUR ---
RESTING IN BED COMFORTABLY. NO S/S OF ACUTE DISTRESS OR PAIN. HOSPICE PATIENT. DNR. HIRSCH PRESENT, PINK TINGED URINE. IV TO RIGHT FOREARM, NS INFUSING @ 10ML/HR. MORPHINE OPTION TRADER CONTINUOUS, MANAGING PAIN AT THIS TIME. CALL LIGHT IN REACH. WILL CONTINUE TO MONITOR.
[2019-05-27 09:05] VITALS: BP 183/111
--- NOTE | 2019-05-27 14:55 | NUR ---
I have reviewed this patient and I concur with the Shift Assessment completed by the Licensed Practical Nurse today this shift.
--- NOTE | 2019-05-27 19:00 | NUR ---
RESTING COMFORTABLY IN BED, FAMILY AT BEDSIDE. MORPHINE CHANGE MANAGEMENT CONTINUOUS.
[2019-05-27 20:25] VITALS: BP 143/100
--- NOTE | 2019-05-28 04:21 | NUR ---
PT HAS . HOSPICE HAS BEEN CALLED. FAMILY HAS BEEN NOTIFIED.
--- NOTE | 2019-05-28 04:28 | NUR ---
HOSPICE NURSE STATED ABOUT 1 HOUR UNTIL ARRIVAL. WILL FALLOW UP.
--- NOTE | 2019-05-28 05:50 | NUR ---
I have reviewed this patient and I concur with the Shift Assessment completed by the Licensed Practical Nurse today this shift.
--- NOTE | 2019-05-28 08:41 | NUR ---
HOME PICKED UP PATIENT AT THIS TIME.
--- NOTE | 2019-05-28 12:02 | MORECARE ---
CASE MANAGEMENT DISCHARGE SUMMARY PATIENT: SHIELA GUAMAN UNIT: [id number] ADM DATE: 05/23/19 AGE: 83 : 36 SEX: M ROOM/BED: D.2219 AUTHOR: TREY HERNANDEZ PHYSICIAN: REFERRING PHYSICIAN: ABRAHAM ASTUDILLO MD DATE OF SERVICE: 05/28/19 Discharge Plan Patient Name: SHIELA GUAMAN Facility: [facility]:[place] : 1935 Planned Disposition: Hospice Medical Facility Anticipated Discharge Date: Discharge Date: 05/28/2019 Expected LOS: 0 Initial Reviewer: [email or web address] Initial Review Date: 05/23/2019 Generated: 05/28/19 1:01 pm Comments DCP- Discharge Planning Updated by [email or web address]: Alberta Ruiz on 05/26/19 1:[address] PATIENT IS A [facility] HOSPICE PATIENT WITH LUIS Last DP export: 05/26/19 1:55 Patient Name: SHIELA GUAMAN Page [id number] at 1202 All edits/amendments must be made on the electronic document DICTATION DATE: 05/28/19 1201 BOARDMARKER: BUCK 05/28/19 1201 RPT#: [id number] DC DATE:05/28/19 STATUS: DIS IN [facility] [address] [place] [address] END OF REPORT
== END 2019-05-28 08:42 | DRG 951 ==
LOC: D.M2 12:38 → D.MS 13:43
PROVIDERS: ADMIT Legal Medicine; ATTEND Legal Medicine
DX: Z51.5 Encounter for palliative care (principal)